=== PATIENT | female | born 1930 | race Caucasian/White ===

== ENCOUNTER 2016-12-07 20:02 | Emergency (ER) | payer MEDICARE ==
[~2016-12-07] VITALS: Ht 144.8 cm; Wt 50.0 kg
[2016-12-07] MEDS ORDERED: PRIM50 PO (20:13)
[2016-12-07] MEDS ORDERED: DSS100 PO (20:13)
[2016-12-07] MEDS ORDERED: ACET-784 PO (20:13)
[2016-12-07] MEDS ORDERED: RIVA15T PO (20:13)
[2016-12-07] MEDS ORDERED: CHOL200016 PO (20:13)
[2016-12-07] MEDS ORDERED: DIGO125T PO (20:13)
[2016-12-07] MEDS ORDERED: MIRALAX PO (20:13)
[2016-12-07] MEDS ORDERED: MORPHINE SULFATE 4 MG/ML SYRINGE IM ONE (21:30)
[2016-12-07] MEDS ORDERED: ONDANSETRON HCL 4 MG/2 ML VIAL IM ONE (21:30)
[2016-12-07 21:34] LABS: APPEARANCE,URINE CLOUDY (CLEAR); GLUCOSE, URINE (UA) NEGATIVE (NEGATIVE); KETONES,URINE TRACE mg/dL (NEGATIVE); LEUKOCYTE ESTERASE ,URINE SMALL (NEGATIVE); OCCULT BLOOD,URINE MODERATE (NEGATIVE); PH,URINE 5.5 (5.0-8.0); PROTEIN,URINE TRACE (NEGATIVE)
[2016-12-07 21:35] LABS: ADD UA MICROSCOPIC YES
[2016-12-07 21:43] LABS: RBC,URINE 0-2 /HPF (0-2)
[2016-12-07 21:43] LABS: BASOPHILS # (AUTO) 0.01 K/uL (0.00-0.20); BASOPHILS % (AUTO) 0.1 % (0.0-2.0); EOSINOPHILS # (AUTO) 0.01 K/uL (0.00-0.70); EOSINOPHILS % (AUTO) 0.09 % (1.0-6.0); HEMATOCRIT 38.6 % (36-46); HEMOGLOBIN 13.2 g/dL (12.0-16.0); LYMPHOCYTES # (AUTO) 0.6 K/uL (1.0-4.8); LYMPHOCYTES % (AUTO) 6.2 % (22.0-44.0); MEAN CORPUSCULAR HEMOGLOBIN 32.9 pg (26.0-34.0); MEAN CORPUSCULAR HGB CONC 34.1 G/dL (31.0-37.0); MEAN CORPUSCULAR VOLUME 97 fL (80-100); MONOCYTES # (AUTO) 0.6 K/uL (0.1-1.0); MONOCYTES % (AUTO) 6.3 % (2.0-9.0); NEUTROPHILS # (AUTO) 8.4 K/uL (1.8-7.7); PLATELET COUNT (AUTO) 120 K/uL (150-450); RED CELL DISTRIBUTION WIDTH 14.5 % (11.5-14.5); WHITE BLOOD COUNT (AUTO) 9.6 K/uL (4.5-11.0)
[2016-12-07 21:48] LABS: ANION GAP 7 mmol/L (8-16); CARBON DIOXIDE 26 mmol/L (22-29); CHLORIDE 105 mmol/L (98-107); CREATININE 0.86 mg/dL (0.60-1.30); GLOMERULAR FILTR. RATE CALC > 60 mL/min (>60); POTASSIUM 4.1 mmol/L (3.5-5.1); SODIUM SERUM 138 mmol/L (136-145); UREA NITROGEN, BLOOD 20 mg/dL (7-18)
[2016-12-07 21:51] LABS: NEUTROPHILS % (AUTO) 87.4 % (40.0-70.0)
[2016-12-07 21:55] LABS: ALANINE AMINOTRANSFERASE 20 U/L (12-78); ALBUMIN 3.4 g/dL (3.4-5.0); ASPARTATE AMINOTRANSFERASE 22 U/L (15-37); BILIRUBIN,TOTAL 0.5 mg/dL (0.1-1.0); CREATINE KINASE, TOTAL 62 U/L (26-192); TOTAL PROTEIN, SERUM 6.6 g/dL (6.4-8.2)
[2016-12-07] MEDS ORDERED: CIPROFLOXACIN HCL 250 MG TABLET PO ONE (22:00)
[2016-12-07 22:08] LABS: B-TYPE NATRIURETIC PEPTIDE 184 pg/mL (0-100)
[2016-12-07 22:37] VITALS: BP 110/48
== END 2016-12-07 23:24 | disposition home or self-care (01) ==
LOC: EMS 20:04
DX: S73.101A Unspecified sprain of right hip, initial encounter (principal); N39.0 Urinary tract infection, site not specified; I48.91 Unspecified atrial fibrillation; Z98.890 Other specified postprocedural states; W07.XXXA Fall from chair, initial encounter; Y93.89 Activity, other specified; Y92.048 Other place in boarding-house as the place of occurrence of the external cause; Y99.8 Other external cause status
CPT/HCPCS: 36415; 71010; 73502; 73552; 80053; 81001; 82550; 83880; 84484; 85025; 87077; 87086; 93005; 96372; 99285; J2270; J2405